=== PATIENT | female | born 1970 | race Caucasian/White ===

== ENCOUNTER 2017-01-04 12:29 | Emergency (ER) | payer MEDICAID ==
[~2017-01-04] VITALS: Ht 165.1 cm; Wt 65.8 kg
[2017-01-04 13:00] VITALS: BP_SYST 140
[2017-01-04] MEDS ORDERED: KETOROLAC TROMETHAMINE 60 MG/2 ML VIAL IM ONE (13:15)
[2017-01-04 14:33] VITALS: BP_SYST 98
== END 2017-01-04 14:33 | disposition home or self-care (01) ==
LOC: SED 12:29
DX: S39.012A Strain of muscle, fascia and tendon of lower back, initial encounter (principal); R03.0 Elevated blood-pressure reading, without diagnosis of hypertension; E03.9 Hypothyroidism, unspecified; X58.XXXA Exposure to other specified factors, initial encounter; Y93.89 Activity, other specified; Y99.8 Other external cause status; Y92.89 Other specified places as the place of occurrence of the external cause
CPT/HCPCS: 72110; 81025; 96372; 99284; J1885

== ENCOUNTER 2022-04-28 10:37 | Emergency (ER) | payer MEDICAID ==
[~2022-04-28] VITALS: Ht 157.5 cm; Wt 68.0 kg
[2022-04-28 10:41] VITALS: BP_SYST 191
[2022-04-28] MEDS ORDERED: NACL 0.9% 1,000 ML IV ONE (11:30)
[2022-04-28] MEDS ORDERED: ONDANSETRON HCL 4 MG/2 ML VIAL IVP ONE (11:30)
[2022-04-28 12:10] LABS: BASOPHILS % (AUTO) 0.4 % (0.0-2.0); EOSINOPHILS % (AUTO) 0.8 % (0.0-4.0); HEMATOCRIT 42.9 % (36-48); HEMOGLOBIN 15.1 g/dL (12.0-16.0); LYMPHOCYTES # (AUTO) 1.1 K/uL (1.0-5.5); LYMPHOCYTES % (AUTO) 20.5 % (20.5-51.5); MEAN CORPUSCULAR HEMOGLOBIN 32 pg (27-31); MEAN CORPUSCULAR HGB CONC 35 % (32-36); MEAN CORPUSCULAR VOLUME 90 fL (79.0-98.0); MONOCYTES # (AUTO) 0.3 K/uL (0.0-1.0); NEUTROPHILS # (AUTO) 3.8 K/uL (1.8-7.7); NEUTROPHILS % (AUTO) 72.3 % (40.0-70.0); PLATELET COUNT (AUTO) 192 K/uL (130-430); RED BLOOD CELL COUNT(AUTO) 4.77 MIL/uL (4.2-6.2); RED CELL DISTRIBUTION WIDTH 12.8 % (9.0-15.0); WHITE BLOOD COUNT (AUTO) 5.2 K/uL (4.8-10.8)
[2022-04-28 12:26] VITALS: BP_SYST 152
[2022-04-28] MEDS ORDERED: KETOROLAC TROMETHAMINE 15 MG VIAL IVP ONE (13:15)
[2022-04-28] MEDS ORDERED: DIPHENHYDRAMINE INJ 50 MG/ML VIAL IVP ONE (13:15)
[2022-04-28] MEDS ORDERED: PROCHLORPERAZINE EDISYLATE 10 MG/2 ML VIAL IVP ONE (13:15)
[2022-04-28 13:27] LABS: THYROID STIMULATING HORMONE 0.14 uIu/mL (0.36-3.74)
[2022-04-28 13:49] LABS: CALCIUM 8.9 mg/dL (8.4-11.0); CREATININE 0.86 mg/dL (0.55-1.30); TOTAL BILIRUBIN 0.4 mg/dL (0.0-1.0)
[2022-04-28 13:59] LABS: BILIRUBIN,URINE NEGATIVE (NEGATIVE); BLOOD, URINE NEGATIVE (NEGATIVE); CLARITY/URINE CLEAR (CLEAR); COLOR,URINE YELLOW (YELLOW); GLUCOSE,URINE NEGATIVE (NEGATIVE); KETONES,URINE NEGATIVE (NEGATIVE); LEUKOCYTE ESTERASE ,URINE NEGATIVE (NEGATIVE); NITRITE, URINE NEGATIVE (NEGATIVE); PH,URINE 7.5 (5.0-8.0); PROTEIN URINE NEGATIVE (NEGATIVE); UROBILINOGEN,URINE 0.2 (0.2-1.0)
[2022-04-28] MEDS ORDERED: PROC10TA13 PO (14:15)
[2022-04-28] MEDS ORDERED: DIPH25CA83 PO (14:15)
== END 2022-04-28 14:30 | disposition home or self-care (01) ==
LOC: SED 10:37
DX: E87.1 Hypo-osmolality and hyponatremia (principal); R11.0 Nausea; R03.0 Elevated blood-pressure reading, without diagnosis of hypertension; Z79.899 Other long term (current) drug therapy
CPT/HCPCS: 99285; 96374; 96375; 70450; 96361; 80053; 83735; 84443; 85025; 36415; 93005; 76376; 81003; J1200; J1885; J2405; J0780; J7030

== ENCOUNTER 2022-04-30 10:32 | Emergency (ER) | payer MEDICAID ==
[~2022-04-30] VITALS: Ht 157.5 cm; Wt 68.0 kg
[~2022-04-30 10:32] MED LIST: DIPH25CA83 PO; PROC10TA13 PO
[2022-04-30 10:45] VITALS: BP_SYST 161
--- NOTE | 2022-04-30 10:45 | NUR ---
PT TRAIGED AND PLACED IN ED WAITING ROOM FOR AVAILABLE BED IN MAIN ED. ER MD AWARE OF MSE NEEDS
--- NOTE | 2022-04-30 10:50 | NUR ---
PT BIB FRIEND FROM HOME C/O BISWAS, DIZZINESS AND HTN AT HOME WAS 194/102 ON ARRIVAL 161/84. DIZZINESS SINCE SUNDAY, DC'D YESTERDAY WITH RX OFBENADRYL AND COMPAZINE, STATES NOT RELIEVING SYMPTOMS. PT IS NOT ON ANY HTN MEDS AT HOME. PT IS AMBULATORY, AAOX4, VSS
--- NOTE | 2022-04-30 11:57 | NUR ---
ER DR. NAVA EXAMINING PT IN TRIAGE
[2022-04-30] MEDS ORDERED: METOCLOPRAMIDE HCL 10 MG TABLET PO ONE (12:00)
[2022-04-30] MEDS ORDERED: LISINOPRIL 10 MG TABLET (PRINIVIL) PO ONE (12:00)
[2022-04-30] MEDS ORDERED: KETOROLAC TROMETHAMINE 60 MG/2 ML VIAL IM ONE (12:00)
[2022-04-30] MEDS ORDERED: ACETAMINOPHEN 500 MG TABLET PO ONE (12:00)
[2022-04-30] MEDS ORDERED: ACET-2634 PO (12:08)
[2022-04-30] MEDS ORDERED: LISI1TAB53 PO (12:08)
[2022-04-30] MEDS ORDERED: METO-290 PO (12:08)
[2022-04-30] MEDS ORDERED: IBUP-1969 PO (12:08)
[2022-04-30 13:27] VITALS: BP_SYST 161
--- NOTE | 2022-04-30 13:29 | NUR ---
Patient given written and verbal discharge instructions and verbalizes understanding. ER MD discussed with patient the results and treatment provided. Patient in stable condition. ID arm band removed. Rx of TYLENOL, IBUPROFEN, LISINOPRIL-HCTZ, REGLAN given. Patient educated on pain management and to follow up with PMD. Pain Scale 0/10. Opportunity for questions provided and answered. Medication side effect fact sheet provided.
== END 2022-04-30 13:27 | disposition home or self-care (01) ==
LOC: SED 10:32
DX: R51.9 Headache, unspecified (principal); R11.2 Nausea with vomiting, unspecified; I10 Essential (primary) hypertension; Z79.899 Other long term (current) drug therapy
CPT/HCPCS: 99284; 96372; J8597; J1885

== ENCOUNTER 2022-08-12 18:10 | Emergency (ER) | payer MEDICAID ==
[~2022-08-12] VITALS: Ht 160 cm; Wt 68.0 kg
[~2022-08-12 18:10] MED LIST changes: +ACET-2634 PO; +IBUP-1969 PO; +LISI1TAB53 PO; +METO-290 PO
[2022-08-12 18:19] VITALS: BP_SYST 160
--- NOTE | 2022-08-12 18:58 | NUR ---
Pt brought by self, A&Ox4, pt presents to ER with R heel pain x 2 weeks, denies trauma, denies other injuries.
--- NOTE | 2022-08-12 20:00 | NUR ---
DR. TRACEY WITH PATIENT IN TRIAGE, ASSESSING PATIENT.
[2022-08-12] MEDS ORDERED: NAPR-690 PO (20:48)
--- NOTE | 2022-08-12 21:29 | NUR ---
PATIENT DISCHARGED FROM WAITING ROOM.
--- NOTE | 2022-08-12 21:30 | NUR ---
Patient given written and verbal discharge instructions and verbalizes understanding. ER MD discussed with patient the results and treatment provided. Patient in stable condition. ID arm band removed. IV catheter removed intact and dressing applied, no active bleeding. Rx of N/A given. Patient educated on pain management and to follow up with PMD. Pain Scale . Opportunity for questions provided and answered. Medication side effect fact sheet provided.
== END 2022-08-12 21:30 | disposition home or self-care (01) ==
LOC: SED 18:10
DX: S93.602A Unspecified sprain of left foot, initial encounter (principal); I10 Essential (primary) hypertension; Z79.899 Other long term (current) drug therapy; X58.XXXA Exposure to other specified factors, initial encounter; Y93.89 Activity, other specified; Y92.89 Other specified places as the place of occurrence of the external cause; Y99.8 Other external cause status
CPT/HCPCS: 36415; 84550; 99284